=== PATIENT | male | born 1995 | race Caucasian/White ===

== ENCOUNTER 2017-03-18 15:58 | Emergency (ER) | payer SELFPAY ==
[2017-03-18 16:07] VITALS: RESP 16
[2017-03-18] MEDS ORDERED: NS 1,000 ML IV ONE ×2 (16:11→16:18)
--- NOTE | 2017-03-18 16:16 | CPEKG ---
Heart Rate: 125 RR Interval: 480 P-R Interval: 132 QRSD Interval: 76 QT Interval: 320 QTC Interval: 462 P [place]: 76 QRS [place]: 95 T Wave [place]: 33 EKG Severity - OTHERWISE NORMAL ECG - EKG Impression: SINUS TACHYCARDIA EKG Impression: BORDERLINE RIGHT AXIS DEVIATION Electronically Signed By: Lukas Tang 18-Mar-2017 16:43:14
[2017-03-18] MEDS ORDERED: LORazepam 2 MG/ML INJ IVP ONE (16:24)
--- NOTE | 2017-03-18 16:28 | EDPHY ---
H & P Stated Complaint: syncope Source: Patient Exam Limitations: No limitations - Medical/Surgical History Other PMH: ?respiratory issue as child Time Seen by Provider: 03/18/17 16:24 HPI/ROS: HPI: This is a 22-year-old male presents with Chief Complaint: Rapid heart rate Location: Heart Quality: Palpitation Duration: Prior to arrival Signs and Symptoms: No chest pain, no shortness of breath, no wheezing, + near- syncope episode, no loss of consciousness, no nausea vomiting, no headache Timing:sudden resolving Severity: Moderate Context: This is a 22-year-old male who is generally healthy arrived to EMS after they gave him 12mg and 6 mg of Adenocard for SVT en route. Patient reports that he snorted and smoke approximately 1 g of cocaine today. Has not eaten or drank anything today. Denies any previous cardiac history. Upon arrival, he denies having chest pain and reports that he is at baseline. Modifying Factors: Adenocard Comment: ROS: Constitutional: No fever, no chills, no weight loss Eyes: No blurred vision Respiratory: No shortness of breath, no cough Cardiovascular: No chest pain Gastrointestinal: No nausea, no vomiting no diarrhea Genitourinary: No dysuria Extremities: No myalgias Neurologic: No weakness, no numbness Skin: No rashes Hematologic: No bruising, no bleeding MEDICAL/SURGICAL/SOCIAL HISTORY: Generally healthy. Denies surgical history. (Christina Ro) - Physical Exam Exam: CONSTITUTIONAL: Pleasant interactive young adult male, awake and alert, no obvious distress HEENT: Atraumatic and normocephalic, PERRL, EOMI. Tympanic membranes clear. Oropharynx clear, no exudate and moist pink mucosa. Airway patent. No lymphadenopathy. No meningismus. Cardiovascular: Normal S1/S2, sinus tachycardia, regular rhythm, without murmur rub or gallop. PULMONARY/CHEST: Symmetrical and nontender. Clear to auscultation bilaterally Good air movement. No accessory muscle usage. ABDOMEN: Soft, nondistended, nontender, no rebound, no guarding, no peritoneal signs, no masses or organomegaly. No CVAT. EXTREMITIES: 2/2 pulses, no deformities, no clubbing, no cyanosis or edema. NEUROLOGICAL: no focal neuro deficits. GCS 15. SKIN: Warm and dry, multiple tattoos, well-healed remote cuts noted on both forearms, no erythema. no rash. Good capillary refill. (Christina Ro) Constitutional: Initial Vital Signs Heart Rate 126 H 03/18/17 16:04 Respiratory Rate 16 03/18/17 16:04 Blood Pressure 124/72 H 03/18/17 16:04 O2 Sat (%) 95 03/18/17 16:04 O2 Delivery Mode Room Air Allergies/Adverse Reactions: No Known Allergies Allergy (Unverified 03/18/17 16:07) Home Medications: Medication Instructions Recorded NK [No Known Home Meds] 03/18/17 Medical Decision Making - Diagnostics EKG Interpretation: 12 lead EKG: Indication: palpitations Rhythm: sinus tachycardia [place]: Normal Intervals: Normal QRS: Normal ST segments: Normal INTERPRETATION: Normal EKG The 12 lead EKG was interpreted by myself. (Christina Ro) Imaging Results: Imaging Impressions Chest X-Ray 03/18/17 16:19 Impression: Normal. Chest/Thorax CTA 03/18/17 16:55 Impression: 1. No evidence of thrombopulmonary embolic disease. 2. Clear lungs. No acute process. Findings discussed with Emergency Department physician transport assistantChristina at 03/18/2017, 1831 hours. ED Course/Re-evaluation: Heart rate 120 and sinus tach upon arrival. Given 2 L normal saline and IV Ativan 1 mg Chest x-ray, labs, urine drug screen, EKG ordered. Chest x-ray my read via PACs shows no cardiomegaly, no pneumothorax, no pleural effusion. 1655: D-dimer elevated; CTA chest ordered 1710: CO2 8; pH 7.40 1745: Patient refused CTA chest initially. Went to room and counseled him on the risks/benefits/adverse effects. He now consents to go forth. 1830: Called by radiologist and CTA chest shows NO PE, normal aorta Decision made to redraw Chem 7 and re-evaluate CO2 level Repeat labs show improvement except drop in hemoglobin which is likely dilutional. (Christina Ro) Differential Diagnosis: Chest pain including but not limited to myocardial ischemia, pulmonary embolus, chest wall pain, pleural inflammation and pulmonary infectious causes. (Christina Ro) Other Provider: PHYSICIAN DOCUMENTATION: The patient was evaluated and managed by the [facility] and myself. I have reviewed the chart and agree with the findings and plan of care as documented. In addition, I examined the patient myself at 1638. History confirmed as cocaine use, no chest pain or SOB. Physical findings as follows: Multiple healing superficial lacerations and abrasions on the right shoulder and both forearms. Regular rate and rhythm without murmur. Talking on the phone when I enter the room. Temperature 36.6degrees. 12-lead EKG interpreted by me; official reading is in trace master. My interpretation is sinus tachycardia rate 125, performed for palpitations. No ischemic changes. The patient looks well, electrolytes completely corrected on repeat draw. His hematocrit dropped likely due to volume expansion after substantial IV hydration in the emergency department. Toxicology screen positive for cocaine, likely the reason for his presentation. I am the secondary supervising physician. (Lukas Tang) - Data Points Laboratory Results: Laboratory Results 03/18/17 18:40 03/18/17 19:36 03/18/17 03/18/17 03/18/17 20:08 19:36 18:40 WBC 17.10 10^3/uL H 10^3/uL (3.80-9.50) RBC 4.44 10^6/uL 10^6/uL (4.40-6.38) Hgb 13.2 g/dL L g/dL (13.7-17.5) Hct 39.0 % L D % (40.0-51.0) MCV 87.8 fL fL (81.5-99.8) MCH 29.7 pg pg (27.9-34.1) MCHC 33.8 g/dL g/dL (32.4-36.7) RDW 14.3 % % (11.5-15.2) Plt Count 470 10^3/uL H D 10^3/uL (150-400) MPV 9.4 fL fL (8.7-11.7) Neut % (Auto) 86.0 % H % (39.3-74.2) Lymph % (Auto) 7.4 % L % (15.0-45.0) [place] % (Auto) 5.7 % % (4.5-13.0) Eos % (Auto) 0.0 % L % (0.6-7.6) Baso % (Auto) 0.2 % L % (0.3-1.7) Nucleat RBC Rel Count 0.0 % % (0.0-0.2) Absolute Neuts (auto) 14.71 10^3/uL H 10^3/uL (1.70-6.50) Absolute Lymphs (auto) 1.26 10^3/uL 10^3/uL (1.00-3.00) Absolute Monos (auto) 0.97 10^3/uL H 10^3/uL (0.30-0.80) Absolute Eos (auto) 0.00 10^3/uL L 10^3/uL (0.03-0.40) Absolute Basos (auto) 0.04 10^3/uL 10^3/uL (0.02-0.10) Absolute Nucleated RBC 0.00 10^3/uL 10^3/uL (0-0.01) Immature Gran % 0.7 % % (0.0-1.1) Immature Gran # 0.12 10^3/uL H 10^3/uL (0.00-0.10) D-Dimer VBG pH Sodium 136 mEq/L mEq/L (134-144) Potassium 3.7 mEq/L mEq/L (3.5-5.2) Chloride 104 mEq/L mEq/L (97-110) Carbon Dioxide 21 mEq/l L D mEq/l (22-31) Anion Gap 11 mEq/L mEq/L (8-16) BUN 8 mg/dL mg/dL (7-23) Creatinine 1.0 mg/dL mg/dL (0.7-1.3) Estimated GFR > 60 Glucose 85 mg/dL D mg/dL (70-100) Calcium 8.6 mg/dL D mg/dL (8.5-10.4) Magnesium Total Bilirubin 0.5 mg/dL mg/dL (0.1-1.4) AST 21 IU/L IU/L (17-59) ALT 43 IU/L IU/L (21-72) Alkaline Phosphatase 79 IU/L IU/L (38-126) Troponin I NT-Pro-B Natriuret Pep Total Protein 6.3 g/dL g/dL (6.3-8.2) Albumin 3.7 g/dL g/dL (3.5-5.0) TSH Urine Opiates Screen NEGATIVE (NEGATIVE) Urine Barbiturates NEGATIVE (NEGATIVE) Ur Phencyclidine Scrn NEGATIVE (NEGATIVE) Ur Amphetamine Screen NEGATIVE (NEGATIVE) U Benzodiazepines Scrn NEGATIVE (NEGATIVE) Urine Cocaine Screen NON-NEGATIVE H (NEGATIVE) U Marijuana (THC) Screen NON-NEGATIVE H (NEGATIVE) 03/18/17 03/18/17 03/18/17 17:23 16:05 16:05 WBC RBC Hgb Hct MCV MCH MCHC RDW Plt Count MPV Neut % (Auto) Lymph % (Auto) [place] % (Auto) Eos % (Auto) Baso % (Auto) Nucleat RBC Rel Count Absolute Neuts (auto) Absolute Lymphs (auto) Absolute Monos (auto) Absolute Eos (auto) Absolute Basos (auto) Absolute Nucleated RBC Immature Gran % Immature Gran # D-Dimer 2.23 ug/mLFEU H ug/mLFEU (0.00-0.50) VBG pH 7.40 (7.31-7.42) Sodium 140 mEq/L mEq/L (134-144) Potassium 4.3 mEq/L mEq/L (3.5-5.2) Chloride 97 mEq/L mEq/L (97-110) Carbon Dioxide 8 mEq/l L* mEq/l (22-31) Anion Gap 35 mEq/L H mEq/L (8-16) BUN 8 mg/dL mg/dL (7-23) Creatinine 1.4 mg/dL H mg/dL (0.7-1.3) Estimated GFR > 60 Glucose 200 mg/dL H mg/dL (70-100) Calcium 10.5 mg/dL H mg/dL (8.5-10.4) Magnesium 3.0 mg/dL H mg/dL (1.6-2.3) Total Bilirubin AST ALT Alkaline Phosphatase Troponin I < 0.012 ng/mL ng/mL (0.000-0.034) NT-Pro-B Natriuret Pep 72 pg/mL pg/mL (0-125) Total Protein Albumin TSH 3.250 uIU/mL uIU/mL (0.465-4.680) Urine Opiates Screen Urine Barbiturates Ur Phencyclidine Scrn Ur Amphetamine Screen U Benzodiazepines Scrn Urine Cocaine Screen U Marijuana (THC) Screen 03/18/17 16:05 WBC 14.04 10^3/uL H 10^3/uL (3.80-9.50) RBC 5.34 10^6/uL 10^6/uL (4.40-6.38) Hgb 15.9 g/dL g/dL (13.7-17.5) Hct 49.2 % % (40.0-51.0) MCV 92.1 fL fL (81.5-99.8) MCH 29.8 pg pg (27.9-34.1) MCHC 32.3 g/dL L g/dL (32.4-36.7) RDW 14.5 % % (11.5-15.2) Plt Count 661 10^3/uL H 10^3/uL (150-400) MPV 9.7 fL fL (8.7-11.7) Neut % (Auto) 72.0 % % (39.3-74.2) Lymph % (Auto) 19.1 % % (15.0-45.0) [place] % (Auto) 7.5 % % (4.5-13.0) Eos % (Auto) 0.1 % L % (0.6-7.6) Baso % (Auto) 0.4 % % (0.3-1.7) Nucleat RBC Rel Count 0.0 % % (0.0-0.2) Absolute Neuts (auto) 10.11 10^3/uL H 10^3/uL (1.70-6.50) Absolute Lymphs (auto) 2.68 10^3/uL 10^3/uL (1.00-3.00) Absolute Monos (auto) 1.05 10^3/uL H 10^3/uL (0.30-0.80) Absolute Eos (auto) 0.02 10^3/uL L 10^3/uL (0.03-0.40) Absolute Basos (auto) 0.06 10^3/uL 10^3/uL (0.02-0.10) Absolute Nucleated RBC 0.00 10^3/uL 10^3/uL (0-0.01) Immature Gran % 0.9 % % (0.0-1.1) Immature Gran # 0.12 10^3/uL H 10^3/uL (0.00-0.10) D-Dimer VBG pH Sodium Potassium Chloride Carbon Dioxide Anion Gap BUN Creatinine Estimated GFR Glucose Calcium Magnesium Total Bilirubin AST ALT Alkaline Phosphatase Troponin I NT-Pro-B Natriuret Pep Total Protein Albumin TSH Urine Opiates Screen Urine Barbiturates Ur Phencyclidine Scrn Ur Amphetamine Screen U Benzodiazepines Scrn Urine Cocaine Screen U Marijuana (THC) Screen Medications Given: Discontinued Medications Sodium Chloride (Ns) 1,000 mls @ 0 mls/hr IV ONCE ONE PRN Reason: Wide Open Stop: 03/18/17 16:12 Last Admin: 03/18/17 16:12 Dose: 1,000 mls Sodium Chloride (Ns) 1,000 mls @ 0 mls/hr IV EDNOW ONE; Wide Open PRN Reason: Protocol Stop: 03/18/17 16:19 Last Admin: 03/18/17 16:41 Dose: 1,000 mls Lorazepam (Ativan Injection) 1 mg IVP EDNOW ONE Stop: 03/18/17 16:25 Last Admin: 03/18/17 16:42 Dose: 1 mg Departure - Departure Disposition: Home, Routine, Self-Care Clinical Impression: Cocaine use, Palpitations Condition: Good Instructions: Cocaine Abuse (ED) Additional Instructions: Please avoid all stimulants including but not limited to caffeine, cocaine, methamphetamine, pseudoephedrine. Follow up with primary care provider as needed. Referrals: [facility],. [Clinic] - As per Instructions
[2017-03-18 16:33] LABS: % IMMATURE GRANULYOCYTES 0.9 % (0.0-1.1); ABSOLUTE IMMATURE GRANULOCYTES 0.12 10^3/uL (0.00-0.10); ADD DIFF? NO; ADD MORPH? NO; ADD SCAN? NO; ATYPICAL LYMPHOCYTE FLAG 30 (0-99); FRAGMENT RBC FLAG 0 (0-99); HEMATOCRIT 49.2 % (40.0-51.0); HEMOGLOBIN 15.9 g/dL (13.7-17.5); LEFT SHIFT FLG 0 (0-99); LIPEMIA HEMOLYSIS FLAG 80 (0-99); MEAN CELL HEMOGLOBIN 29.8 pg (27.9-34.1); MEAN CELL HEMOGLOBIN CONCENTR. 32.3 g/dL (32.4-36.7); MEAN CELL VOLUME 92.1 fL (81.5-99.8); MEAN PLATELET VOLUME 9.7 fL (8.7-11.7); PLATELET CLUMPS FLAG 0 (0-99); PLATELET COUNT 661 10^3/uL (150-400); RED BLOOD CELL COUNT 5.34 10^6/uL (4.40-6.38); RED CELL DISTRIBUTION WIDTH 14.5 % (11.5-15.2)
[2017-03-18 16:51] VITALS: TEMP 97.9
[2017-03-18 17:08] LABS: ANION GAP 35 mEq/L (8-16); CALCIUM 10.5 mg/dL (8.5-10.4); CHLORIDE 97 mEq/L (97-110); CREATININE 1.4 mg/dL (0.7-1.3); GLOMERULAR FILTRATION RATE > 60; GLUCOSE 200 mg/dL (70-100); POTASSIUM 4.3 mEq/L (3.5-5.2); SODIUM 140 mEq/L (134-144)
[2017-03-18 17:10] LABS: CARBON DIOXIDE 8 mEq/l (22-31)
[2017-03-18 17:20] LABS: TROPONIN I < 0.012 ng/mL (0.000-0.034)
[2017-03-18] MEDS ORDERED: IOPAMIDOL (ISOVUE 370) 100 ML BTL IV ONE (17:25)
[2017-03-18 19:19] LABS: % IMMATURE GRANULYOCYTES 0.7 % (0.0-1.1); ABSOLUTE IMMATURE GRANULOCYTES 0.12 10^3/uL (0.00-0.10); ADD DIFF? NO; ADD MORPH? NO; ADD SCAN? NO; ATYPICAL LYMPHOCYTE FLAG 10 (0-99); FRAGMENT RBC FLAG 0 (0-99); HEMOGLOBIN 13.2 g/dL (13.7-17.5); LEFT SHIFT FLG 0 (0-99); LIPEMIA HEMOLYSIS FLAG 90 (0-99); MEAN CELL HEMOGLOBIN 29.7 pg (27.9-34.1); MEAN CELL HEMOGLOBIN CONCENTR. 33.8 g/dL (32.4-36.7); MEAN CELL VOLUME 87.8 fL (81.5-99.8); MEAN PLATELET VOLUME 9.4 fL (8.7-11.7); PLATELET CLUMPS FLAG 10 (0-99); PLATELET COUNT 470 10^3/uL (150-400); RED BLOOD CELL COUNT 4.44 10^6/uL (4.40-6.38); RED CELL DISTRIBUTION WIDTH 14.3 % (11.5-15.2)
[2017-03-18 19:58] LABS: ALANINE AMINOTRANSFERASE 43 IU/L (21-72); ALBUMIN 3.7 g/dL (3.5-5.0); ALKALINE PHOSPHATASE 79 IU/L (38-126); ANION GAP 11 mEq/L (8-16); ASPARTATE AMINOTRANSFERASE 21 IU/L (17-59); BILIRUBIN,TOTAL 0.5 mg/dL (0.1-1.4); CALCIUM 8.6 mg/dL (8.5-10.4); CARBON DIOXIDE 21 mEq/l (22-31); CHLORIDE 104 mEq/L (97-110); GLOMERULAR FILTRATION RATE > 60; GLUCOSE 85 mg/dL (70-100); POTASSIUM 3.7 mEq/L (3.5-5.2); SODIUM 136 mEq/L (134-144); TOTAL PROTEIN 6.3 g/dL (6.3-8.2)
[2017-03-18 20:43] VITALS: BP 124/82; PULSE 76; O2SAT 99
== END 2017-03-18 20:43 | disposition home or self-care (01) ==
LOC: EDUNIT#
DX: R00.2 Palpitations (principal); F14.90 Cocaine use, unspecified, uncomplicated; E86.9 Volume depletion, unspecified
CPT/HCPCS: 80305; 96374; J2060; Q9967